=== PATIENT | female | born 1935 | race Caucasian/White ===

== ENCOUNTER → 2024-07-20 10:37 | Outpatient (REF) | payer OTHER, SELFPAY ==
[2024-07-20 12:46] LABS: Magnesium 1.5 mg/dl (1.6-2.3)
== END ==
LOC: OLABN 10:37
PROVIDERS: ATTENDING PHYSICIAN Student in an Organized Health Care Education/Training Program
DX: E83.42 Hypomagnesemia (principal)
CPT/HCPCS: 36415; 83735

== ENCOUNTER 2025-02-20 11:37 | Emergency (ER) | payer OTHER, SELFPAY ==
[2025-02-20] VITALS (18 sets, daily range): BP systolic 131–176; BP diastolic 55–88
[2025-02-20 12:26] LABS: ALT (SGPT) 10 U/L (0-35); AST (SGOT) 15 U/L (14-36); Albumin 3.8 g/dl (3.5-5.0); Alkaline Phosphatase 70 U/L (38-126); Blood Urea Nitrogen 23 mg/dl (7-17); Calcium 9.2 mg/dl (8.4-10.2); Carbon Dioxide 21 mmol/L (22-30); Chloride 99 mmol/L (98-107); Glucose 301 mg/dl (70-99); Potassium 5.3 mmol/L (3.5-5.1); Sodium 130 mmol/L (135-145); Total Protein 7.6 g/dl (6.3-8.2); eGFR 54.19
[2025-02-20 12:29] LABS: Hematocrit 19.3 % (37.0-47.0); Hemoglobin 5.8 g/dL (12.0-16.0); Mean Corp Hgb Conc. 30.1 g/dL (33.0-37.0); Mean Corpuscular Volume 71.7 fL (81.0-99.0); Nucleated Red Blood Cells % 0 %; Platelet Count 452 10^3/uL (130-400); Red Cell Dist. Width 15.7 % (11.5-14.5)
[2025-02-20 14:06] LABS: Glucose - Point of Care 249 mg/dl (70-99)
--- NOTE | 2025-02-20 14:11 | ED.GENMED ---
History of Present Illness
<Yesica Lopez PA-C - Last Filed: 02/20/25 15:01>
General
Chief Complaint: Abnormal Lab Value
Source: family
Exam Limitations: dementia
Time Seen by Provider: 02/20/25 12:01
History of Present Illness
History of Present Illness:
see MDM
Past History
<NELDA Powers Last Filed: 02/20/25 15:01>
Past History
ED Past Medical History: CAD, HTN, Hypercholesterolemia, IDDM, Seizures and Other (memory loss)
Social History
Tobacco: Non-smoker
Review of Systems
<NELDA Powers Last Filed: 02/20/25 15:01>
Review of Systems
Allergies reviewed?: Yes
All Other Systems: Not applicable
Phy Exam
<NELDA Powers Last Filed: 02/20/25 15:01>
Physical Exam
Physical Exam:
GENERAL: Alert , in no apparent distress
EYE: pupils equal and reactive
NECK: Supple
ENT: o/p clr, mmm.
CARDIAC: Regular rate and rhythm .
LUNGS: Clear breath sounds bilaterally, no acute respiratory distress, no wheezes/rales/rhonchi
ABDOMEN: Soft, without focal tenderness, no r/g, no cvat, normal bowel sounds
Rectum, there is a mass or enlarged hemorrhoid from her anus, there is some brown stool that is heme positive
NEUROLOGICAL: Alert and oriented x 2, no focal neuro deficits
SKIN: Warm and dry, skin intact. Pale
MUSCULOSKELETAL: No edema, well perfused. neg christoph's sign
PSYCH: Normal and appropriate interaction.
Course
<NELDA Powers Last Filed: 02/20/25 15:01>
Orders/Labs/Results
Orders:
Orders
02/20/25 11:57
Type And Crossmatch [Type+Screen] Urgent
Complete Blood Count/With Diff Urgent
Comprehensive Metabolic Panel Urgent
Ferritin Urgent
Comment: ADD ON
Iron Urgent
Comment: ADD ON
Total Iron Binding Urgent
Comment: ADD ON
02/20/25 12:54
Add On- LAB Urgent
Tests Added?: iron, ferritin, tibc
02/20/25 13:17
Blood Bank Products [* Blood Bank Products] Urgent
Blood Bank Products: *Packed RBC Leuko (PRBC's
Quantity: 2
Transfuse Today: Yes
Reason: Anemia
02/20/25 13:18
Insulin Regular, Human Pen [NovoLIN R Flexpen] 2 units SC NOW STA
02/20/25 13:24
Electrocardiogram (*1) Urgent
Reason for Study: Fatigue / Weakness
EKG- Treatment ONCE
02/20/25 14:07
Insulin Human Regular [Novolin R] 2 units SC NOW STA
Abnormal Lab Results
02/20/25 02/20/25
11:57 14:03
RBC 2.69 L 10^6/uL
(4.20-5.40)
Hgb 5.8 L* g/dL
(12.0-16.0)
Hct 19.3 L* %
(37.0-47.0)
MCV 71.7 L fL
(81.0-99.0)
MCH 21.6 L pg
(27.0-31.0)
MCHC 30.1 L g/dL
(33.0-37.0)
RDW 15.7 H %
(11.5-14.5)
Plt Count 452 H 10^3/uL
(130-400)
Abs Immat Gran (auto) 0.1 H 10^3/uL
(0-0.05)
Absolute Monos (auto) 0.7 H 10^3/uL
(0.1-0.6)
Immature Gran % 1.2 H %
(0-0.5)
Sodium 130 L mmol/L
(135-145)
Potassium 5.3 H mmol/L
(3.5-5.1)
Carbon Dioxide 21 L mmol/L
(22-30)
BUN 23 H mg/dl
(7-17)
Glucose 301 H mg/dl
(70-99)
% Saturation 14 L %
(20-50)
Ferritin 7.4 L ng/ml
(11.1-264.0)
POC Glucose 249 H mg/dl
(70-99)
Crossmatch IS Only See Detail
02/20/25 11:57
02/20/25 11:57
Vital Signs
Initial and Last Documented VS:
Initial Vital Signs
Temp Pulse Resp BP Pulse Ox
98.1 F 79 16 152/73 99
02/20/25 11:38 02/20/25 11:38 02/20/25 11:38 02/20/25 11:38 02/20/25 11:38
Last Documented Vital Signs
Temp Pulse Resp BP Pulse Ox
98.1 F 88 16 168/70 96
02/20/25 18:31 02/20/25 18:34 02/20/25 18:34 02/20/25 18:31 02/20/25 18:31
[place];Carlos Alberto Lozano, - Last Filed: 02/23/25 06:56>
Orders/Labs/Results
Orders:
Orders
02/20/25 11:57
Type And Crossmatch [Type+Screen] Urgent
Complete Blood Count/With Diff Urgent
Comprehensive Metabolic Panel Urgent
Ferritin Urgent
Comment: ADD ON
Iron Urgent
Comment: ADD ON
Total Iron Binding Urgent
Comment: ADD ON
02/20/25 12:54
Add On- LAB Urgent
Tests Added?: iron, ferritin, tibc
02/20/25 13:17
Blood Bank Products [* Blood Bank Products] Urgent
Blood Bank Products: *Packed RBC Leuko (PRBC's
Quantity: 2
Transfuse Today: Yes
Reason: Anemia
02/20/25 13:18
Insulin Regular, Human Pen [NovoLIN R Flexpen] 2 units SC NOW STA
02/20/25 13:24
Electrocardiogram (*1) Urgent
Reason for Study: Fatigue / Weakness
EKG- Treatment ONCE
02/20/25 14:07
Insulin Human Regular [Novolin R] 2 units SC NOW STA
Abnormal Lab Results
02/20/25 02/20/25
11:57 14:03
RBC 2.69 L 10^6/uL
(4.20-5.40)
Hgb 5.8 L* g/dL
(12.0-16.0)
Hct 19.3 L* %
(37.0-47.0)
MCV 71.7 L fL
(81.0-99.0)
MCH 21.6 L pg
(27.0-31.0)
MCHC 30.1 L g/dL
(33.0-37.0)
RDW 15.7 H %
(11.5-14.5)
Plt Count 452 H 10^3/uL
(130-400)
Abs Immat Gran (auto) 0.1 H 10^3/uL
(0-0.05)
Absolute Monos (auto) 0.7 H 10^3/uL
(0.1-0.6)
Immature Gran % 1.2 H %
(0-0.5)
Sodium 130 L mmol/L
(135-145)
Potassium 5.3 H mmol/L
(3.5-5.1)
Carbon Dioxide 21 L mmol/L
(22-30)
BUN 23 H mg/dl
(7-17)
Glucose 301 H mg/dl
(70-99)
% Saturation 14 L %
(20-50)
Ferritin 7.4 L ng/ml
(11.1-264.0)
POC Glucose 249 H mg/dl
(70-99)
Crossmatch IS Only See Detail
02/20/25 11:57
02/20/25 11:57
Vital Signs
Initial and Last Documented VS:
Initial Vital Signs
Temp Pulse Resp BP Pulse Ox
98.1 F 79 16 152/73 99
02/20/25 11:38 02/20/25 11:38 02/20/25 11:38 02/20/25 11:38 02/20/25 11:38
Last Documented Vital Signs
Temp Pulse Resp BP Pulse Ox
98.1 F 88 16 168/70 96
02/20/25 18:31 02/20/25 18:34 02/20/25 18:34 02/20/25 18:31 02/20/25 18:31
<Bharath Mitchell PA-C - Last Filed: 02/20/25 22:06>
Orders/Labs/Results
Orders:
Orders
02/20/25 11:57
Type And Crossmatch [Type+Screen] Urgent
Complete Blood Count/With Diff Urgent
Comprehensive Metabolic Panel Urgent
Ferritin Urgent
Comment: ADD ON
Iron Urgent
Comment: ADD ON
Total Iron Binding Urgent
Comment: ADD ON
02/20/25 12:54
Add On- LAB Urgent
Tests Added?: iron, ferritin, tibc
02/20/25 13:17
Blood Bank Products [* Blood Bank Products] Urgent
Blood Bank Products: *Packed RBC Leuko (PRBC's
Quantity: 2
Transfuse Today: Yes
Reason: Anemia
02/20/25 13:18
Insulin Regular, Human Pen [NovoLIN R Flexpen] 2 units SC NOW STA
02/20/25 13:24
Electrocardiogram (*1) Urgent
Reason for Study: Fatigue / Weakness
EKG- Treatment ONCE
02/20/25 14:07
Insulin Human Regular [Novolin R] 2 units SC NOW STA
Abnormal Lab Results
02/20/25 02/20/25
11:57 14:03
RBC 2.69 L 10^6/uL
(4.20-5.40)
Hgb 5.8 L* g/dL
(12.0-16.0)
Hct 19.3 L* %
(37.0-47.0)
MCV 71.7 L fL
(81.0-99.0)
MCH 21.6 L pg
(27.0-31.0)
MCHC 30.1 L g/dL
(33.0-37.0)
RDW 15.7 H %
(11.5-14.5)
Plt Count 452 H 10^3/uL
(130-400)
Abs Immat Gran (auto) 0.1 H 10^3/uL
(0-0.05)
Absolute Monos (auto) 0.7 H 10^3/uL
(0.1-0.6)
Immature Gran % 1.2 H %
(0-0.5)
Sodium 130 L mmol/L
(135-145)
Potassium 5.3 H mmol/L
(3.5-5.1)
Carbon Dioxide 21 L mmol/L
(22-30)
BUN 23 H mg/dl
(7-17)
Glucose 301 H mg/dl
(70-99)
% Saturation 14 L %
(20-50)
Ferritin 7.4 L ng/ml
(11.1-264.0)
POC Glucose 249 H mg/dl
(70-99)
Crossmatch IS Only See Detail
02/20/25 11:57
02/20/25 11:57
Vital Signs
Initial and Last Documented VS:
Initial Vital Signs
Temp Pulse Resp BP Pulse Ox
98.1 F 79 16 152/73 99
02/20/25 11:38 02/20/25 11:38 02/20/25 11:38 02/20/25 11:38 02/20/25 11:38
Last Documented Vital Signs
Temp Pulse Resp BP Pulse Ox
98.1 F 88 16 168/70 96
02/20/25 18:31 02/20/25 18:34 02/20/25 18:34 02/20/25 18:31 02/20/25 18:31
<Yesica Lopez PA-C - Last Filed: 02/20/25 15:01>
MDM/Problems Addressed
Differential Diagnosis Includes:
See MDM
MDM/Problems Addressed:
Note:
CHIEF COMPLAINT(S)
Low blood count.
HISTORY OF PRESENT ILLNESS
The patient is an 89-year-old female with a history of rectal cancer diagnosed approximately one year ago. She presented with concerns of a low blood count, potentially necessitating a blood transfusion. The patient reports that she is not currently
receiving chemotherapy or surgical treatment for her rectal cancer. She resides at the [facility] and is compliant with taking iron supplements. The patient is experiencing low blood counts, which she believes may require management through
blood transfusion. Outpatient labs were hemoglobin of 4
The patient indicates she does not currently feel shortness of breath or fatigue but her daughter says she is very wiped out. She denies abdominal or rectal pain at this time and is uncertain about the presence of blood in her bowel movements. The
patient has not received a blood transfusion before to her knowledge.
The patient was under hospice care but came off just after 1 week of being on about a month ago, and her daughter is actively involved in managing her healthcare decisions. There is a consideration for a blood transfusion; however, the risks,
including rare but potential infections, were discussed. Consent from the patient or her daughter will be obtained to proceed with the transfusion.
she would prefer her mother be transported back to [place] after the transfusion
she understands that this is temporary fix
pt has no symptoms
she is blind
PAST MEDICAL AND SURGICAL HISTORY
Rectal cancer diagnosed approximately one year ago.
CHRONIC MEDICAL CONDITIONS SIGNIFICANTLY AFFECTING CARE
Rectal cancer.
SOCIAL DETERMINANTS AFFECTING HEALTH
The patient resides at the [facility] and receives support from her daughter, who is actively involved in her care. The patient is currently under a hospice protocol where limited treatment is being provided for her condition.
PHYSICAL EXAM
See above
Nursing notes reviewed and vital signs reviewed.
PLAN
Discussion was initiated regarding the potential need for a blood transfusion to address the patients low blood count. The risks associated with transfusions, including infection risks, were discussed. The plan is to communicate further with the
patients daughter to confirm a decision regarding proceeding with transfusion.
DIFFERENTIAL DIAGNOSIS
The Differential Diagnosis includes, in no particular order and is not limited to:
1. Anemia due to rectal cancer.
2. Gastrointestinal bleeding.
3. Vitamin deficiency anemia.
4. Myelodysplastic syndrome.
5. Chronic disease anemia.
6. Malabsorption syndromes.
7. Bone marrow suppression.
8. Blood loss anemia.
9. Chemotherapy-induced anemia (if applicable).
10. Iron deficiency anemia.
89-year-old female rectal cancers not having any treatment, not currently on hospice from [facility] for anemia 4.8. Patient has been quite fatigued. She and her daughter have been trying to decide what to do and ultimately the daughter
decided that she wanted to have her mother transfused in hopes of may be giving her some extra time. Patient is asymptomatic at this time other than feeling fatigued. She is not having any active bleeding though she does have blood sometimes mixed
with her stool. I talked to Sachi Moser who confirmed this. She is not having large volume rectal bleeding. Patient is pale and oriented x 1 ultimately deferred to her daughter regarding medical decision. I called her daughter Annel who was
able to work through that she wants her mother to have a transfusion to see if this helps her. She understands it will not be an effective long-term treatment. Patient also has mild hyperglycemia and hyperkalemia, with a normal EKG. I will give
her a subcu dose of insulin for this. Patient is eating. She is comfortable. She will be transfused and discharged back [facility]
<Yesica Lopez PA-C - Last Filed: 02/20/25 15:01>
*Pulse Oximetry
SaO2: 99
Oxygen Mode of Delivery: Room air
<Carlos Alberto Lozano DO - Last Filed: 02/23/25 06:56>
*Pulse Oximetry
Patient hypoxic: no
*Critical Care Note
Total Time (30-74mins, 75-104mins- exclusive of procedures): Not Applicable
<Bharath Mitchell PA-C - Last Filed: 02/20/25 22:06>
Update Note
Update Note:
Pt tolerated blood transfusion w/o incident. D/C back to SNF
ED Attending Note
<Yesica Lopez PA-C - Last Filed: 02/20/25 15:01>
-
Portions of this chart may have been created with voice recognition software.� Occasional wrong word or��sound alike� substitutions may have occurred due to the inherent limitations of voice recognition software.
<Carlos Alberto Lozano, DO - Last Filed: 02/23/25 06:56>
ED Attending Note
Patient seen and examined by attending physician: Yes
I performed the substantive portion of visit, reviewed & personally made and approve the management plan that is documented in note by myself or ANAM.: Yes
ED Attending Note:
Seen with PA examined independently pale anemic female apparently was on comfort care then reversed like to be transfused with a plan to going back to her facility
Discharge Plan
Departure
Patient Disposition: Home (Routine Discharge)
Date of Disposition: 02/20/25
Time of Disposition: 17:26
Patient with high blood pressure during this ER visit?: Yes
Discharge Problem:
Anemia, Rectal cancer, Hyperkalemia, CKD (chronic kidney disease)
Instructions: Anemia in adults, possibly from low iron - ED (DC)
Prescriptions:
No Action
lidocaine 4 % Adhesive Patch,Medicated
1 patch TOPICAL DAILY
aspirin 81 mg Tablet,Delayed Release (Dr/Ec)
81 mg PO DAILY
levothyroxine [Synthroid] 88 mcg Tablet
88 mcg PO DAILY
magnesium hydroxide [Milk of Magnesia] 400 mg/5 mL Suspension
2,400 mg PO HSPRN PRN (Reason: constipation)
bisacodyl [Dulcolax (bisacodyl)] 10 mg Suppository
10 mg ID [id number] PRN (Reason: if no bm aftr mom)
cyanocobalamin (vitamin B-12) 1,000 mcg/mL Solution
1,000 mcg IM QMONTH
Rx Instructions:
first tuesday of each tuesday
ferrous sulfate 325 mg (65 mg iron) Tablet
325 mg PO DAILY
amoxicillin-pot clavulanate [Augmentin] 500-125 mg Tablet
1 tab PO BID
Rx Instructions:
for 7 days starting 02.19.25
magnesium L-lactate 84 mg Tablet Extended Release
84 mg PO DAILY
Visbiome 112.5 billion cell Capsule
1 cap PO HS
Rx Instructions:
for 10 days starting 02/19/25
acetaminophen 325 MG tablet
325 mg PO Q4HPRN PRN (Reason: mild pain)
metformin 1,000 MG tablet
1,000 mg PO BID
insulin glargine [Lantus Solostar U-100 Insulin] 300 UNITS/3 ML insulin pen
18 units SC HS
Referrals:
Ruy Taylor MD [Primary Care Provider, Family Practice]
Jason Madrid DO [Family Provider, [facility]]
Activity Restrictions/Additional Instructions:
Rocio was given 2 units of blood. We also gave her a small dose of insulin for her sugar and her potassium. Please have her hemoglobin checked in 2 days. Return for any concerns.
Interventions
Interventions:
*Risk Screen - Suicide Last Done: 02/20/25 11:38
*General Assessment Last Done: 02/20/25 11:38
*Neglect/Abuse Screening Last Done: 02/20/25 11:38
*ED COVID-19 Vaccine History Last Done: 02/20/25 11:54
*ED Influenza Vaccine History Last Done: 02/20/25 11:[address]
[facility] Fall Risk Assessment Tool Last Done: 02/20/25 12:17
*Nursing Disposition Last Done: 02/20/25 19:50
Discharge Date and Time
Discharge Date/Time: 02/20/25 20:00
Print Language: [place]
[2025-02-20] MEDS: NOVOLIN R 2 UNITS SC (14:34)
[2025-02-20 14:39] LABS: Iron 50 ug/dl (37-170)
[2025-02-20 14:48] LABS: Total Iron Binding Capacity 353 ug/dl (265-497)
[2025-02-20 17:57] LABS: Ferritin 7.4 ng/ml (11.1-264.0)
== END 2025-02-20 20:00 | disposition home or self-care (01) ==
LOC: EMR 11:37
PROVIDERS: Emergency Medicine; EMERGENCY PHYSICIAN Emergency Medicine; FAMILY PHYSICIAN Student in an Organized Health Care Education/Training Program; PRIMARYCARE PHYSICIAN Family Medicine
DX: D64.9 Anemia, unspecified (principal); C20 Malignant neoplasm of rectum; E87.5 Hyperkalemia; E10.22 Type 1 diabetes mellitus with diabetic chronic kidney disease; I12.9 Hypertensive chronic kidney disease with stage 1 through stage 4 chronic kidney disease, or unspecified chronic kidney disease; N18.9 Chronic kidney disease, unspecified; E10.65 Type 1 diabetes mellitus with hyperglycemia; F03.90 Unspecified dementia, unspecified severity, without behavioral disturbance, psychotic disturbance, mood disturbance, and anxiety; I25.10 Atherosclerotic heart disease of native coronary artery without angina pectoris; E78.00 Pure hypercholesterolemia, unspecified; H54.7 Unspecified visual loss; Z79.4 Long term (current) use of insulin; Z79.84 Long term (current) use of oral hypoglycemic drugs; Z79.82 Long term (current) use of aspirin
CPT/HCPCS: 99284; 96372; 36430; 80053; 82728; 82962; 83540; 83550; 85025; 86850; 86900; 86901; 86920; 93005; P9016

== ENCOUNTER → 2025-02-28 09:19 | Outpatient (REF) | payer OTHER, SELFPAY ==
[2025-02-28 10:33] LABS: Hematocrit 25.0 % (37.0-47.0); Hemoglobin 7.6 g/dL (12.0-16.0); Mean Corp Hgb Conc. 30.4 g/dL (33.0-37.0); Mean Corpuscular Volume 78.1 fL (81.0-99.0); Nucleated Red Blood Cells % 0 %; Platelet Count 384 10^3/uL (130-400); Red Cell Dist. Width 18.6 % (11.5-14.5)
== END ==
LOC: OLABN 09:19
PROVIDERS: ATTENDING PHYSICIAN Student in an Organized Health Care Education/Training Program
DX: D50.9 Iron deficiency anemia, unspecified (principal)
CPT/HCPCS: 36415; 85025